=== PATIENT | female | born 1995 | race Caucasian/White ===

== ENCOUNTER 2017-07-26 10:42 | Emergency (ER) | payer SELFPAY ==
[~2017-07-26] VITALS: Ht 175.3 cm; Wt 77.1 kg
--- NOTE | ~2017-07-26 | CR63 ---
[facility] A Service of [facility] & [facility] RADIOLOGY TEXT RESULTS PATIENT: TATIANA BARNES LOCATION: [facility]FT[facility] : [birth year] UNIT #: [id number] AGE: [address]: Denise Prater APRN SEX: F ORDER DR: [id number] [facility] [address] [place], [place] [address] [id number] E MR#: [id number] Acc #: [id number] NAME: TATIANA BARNES : 1995 SEX: F STUDY DATE/TIME: 07/26/2017 11:58 UNIT: [facility] ROOM: STUDY DESCRIPTION: CR Chest 2 View Attending Physician: Denise Prater A.P.R.N. Referring Physician: Chapo Kruse M.D. Ordering Physician: Ed Zacarias Reveles M.D. Primary Care Physician: No Primary Care Physician MEDICAL IMAGING REPORT This report is preliminary unless electronic signature is present EXAM Two-view chest, 07/26/2017. INDICATIONS 21-year-old female with cough, fever and wheezing symptoms today. Hives and swelling. TECHNIQUE Two views of the chest were performed. COMPARISON We have no comparisons. FINDINGS Cardiac silhouette within normal limits. Vascularity unremarkable. Lungs clear. There are calcified granulomas. No pneumothorax. IMPRESSION 1. Negative chest. We have no comparisons. Dictated by... Rj Lawton M.D. THIS IS AN ELECTRONICALLY VERIFIED REPORT Rj Lawton M.D. at 07/26/2017 5:21 PM Elliott TD: 07/26/2017 15:27 JOB #: [id number] MEDICAL IMAGING REPORT Page 1 of 1 COPY
[2017-07-26 11:44] LABS: URINE SOURCE CLEAN CATCH
[2017-07-26 11:50] LABS: URINE APPEARANCE CLOUDY; URINE BILIRUBIN NEG (NEG); URINE BLOOD NEG (NEG); URINE COLOR DK YELLOW; URINE GLUCOSE NEG (NEG); URINE KETONE TRACE (NEG); URINE LEUKOCYTE ESTERASE 2+ (NEG); URINE NITRATE NEG (NEG); URINE PH 5.5 (5-8); URINE PROTEIN 1+ (NEG); URINE SPECIFIC GRAVITY 1.033 (1.003-1.035)
[2017-07-26 11:52] LABS: CULTURE INDICATED? YES; URINE BACTERIA AUWI 2+ (NEGATIVE); UWBCS1 AUWI 25-50 (0-5)
[2017-07-26 12:02] LABS: INFLUENZA A NEG (NEG); INFLUENZA B NEG (NEG)
[2017-07-26 12:41] LABS: URINE SQUAMOUS EPITHELIAL CELL MANY /[HPF]
[2017-07-26 12:42] LABS: U HYALINE CASTS AUWI 50-100 /[LPF]; URINE AMORPHOUS SEDIMENT AMORP URATES; URINE CRYSTALS CALCIUM OXALATE /[HPF]; URINE YEAST PRESENT
== END 2017-07-26 13:30 | disposition home or self-care (01) ==
LOC: CFTX 10:42 → CED 10:42 → CFTX 12:46
PROVIDERS: Nurse Practitioner
DX: T78.40XA Allergy, unspecified, initial encounter (principal); J20.9 Acute bronchitis, unspecified; F17.210 Nicotine dependence, cigarettes, uncomplicated
CPT/HCPCS: 36415; 71020; 81003; 84703; 87086; 87651; 87804; 94640; 94664; 96361; 96374; 96375; 99283; J1200; J2930